=== PATIENT | female | born 1980 | race Caucasian/White ===

== ENCOUNTER → 2016-04-20 | Outpatient (CLI) | payer BC ==
[2016-04-20 11:53] LABS: CH 27.2; CHCM 32.2; HCT 38.5 % (34.0-46.0); HDW 2.73; HGB 12.7 gm/dL (11.4-16.0); MCHC 32.9 g/dL (31.0-37.0); MCV 85.1 fL (80.0-100.0); Mean Platelet Volume 6.9; RBC 4.52 m/uL (3.80-5.40); RDW 13.3 % (11.5-15.5); WBC 11.3 k/uL (3.8-10.6)
== END | disposition home or self-care (01) ==
LOC: LABWHC1 10:28
PROVIDERS: ATTEND Obstetrics & Gynecology
DX: Z34.82 Encounter for supervision of other normal pregnancy, second trimester (principal); Z3A.00 Weeks of gestation of pregnancy not specified
CPT/HCPCS: 36415; 82950; 85027

== ENCOUNTER → 2016-05-25 | Outpatient (CLI) | payer BC ==
--- NOTE | 2016-05-25 11:46 | US ---
EXAMINATION TYPE: US OB anatomy transabd third trimester DATE OF EXAM: 05/25/2016 11:14 AM COMPARISON: NONE HISTORY: LGA, no complaints or prior issues per pt TECHNIQUE: Transabdominal (TA) EXAM MEASUREMENTS: GESTATIONAL AGE / DATING Physician Established: (35 weeks/3 days) EDC: 06/26/2016 Dates by LMP: (35 weeks/3 days) EDC: 06/26/2016 Dates by First Scan: no previous here Dates by Current Scan for: (34 weeks/3 days) EDC: 07/03/2016 SURVEY IUP: Single PLACENTA: Fundal PREVIA: No previa MIKE: 9cm cm Normal CERVICAL LENGTH (transabdominal: norm > 3.0cm): unable to evaluate due to shadowing from head BIOMETRY PRESENTATION: Vertex LIE: Oblique BPD: 8.7 cm 35 weeks / 0 days HC: 31.4 cm 35 weeks / 1 days AC: 29.6 cm 33 weeks / 4 days FL: 6.5 cm 33 weeks / 5 days ESTIMATED WEIGHT IN GRAMS: 2300 grams ESTIMATED WEIGHT IN LBS/OZS: 5 lbs. 1 oz. WEIGHT PERCENTAGE BASED ON ESTABLISHED DATE: 13 % HC/AC: 1.06 FL/AC: 22 HEART RATE: 138 bpm RHYTHM: Normal ANATOMY SEEN (within normal limits): * Lateral Vent (< 1 cm) 0.7 cm Midline Falx Cavus Septi Pellucidi Stomach Situs Nose / Lips Diaphragm Kidneys (bilateral) Bladder Longitudinal Spine Transverse Spine ANATOMY NOT SEEN: due to advanced age and lie * Cisterna Magna (< 1.1 cm) * Nuchal Fold (< 0.6 cm) * Cerebellum (varies with age) Choroid Plexus (bilateral) Four Chamber Heart Outflow tracts: LVOT/RVOT Cord Insert Three Vessel Cord Arms (bilateral) Legs (bilateral) TECHNOLOGIST IMPRESSION: some exam limitations due to advanced age and lie, structures seen ap pear wnl, growth congruent with established dates Single live intrauterine gestation is present. There is no ultrasound evidence for placenta previa. A mniotic fluid index is within normal limits. biometry measurements are within normal limits. De tailed anatomical survey is suboptimal due to advanced age. Visualized structures are within normal l imits during real-time scanning as noted above. Still pictures are unremarkable of the noted normal s tructures. IMPRESSION: As above
== END | disposition home or self-care (01) ==
LOC: RADUSWWP 10:40
PROVIDERS: ATTEND Obstetrics & Gynecology
DX: O36.63X0 Maternal care for excessive fetal growth, third trimester, not applicable or unspecified (principal); Z3A.00 Weeks of gestation of pregnancy not specified
CPT/HCPCS: 76811

== ENCOUNTER 2016-06-21 05:58 | Inpatient (IN) | payer BC ==
[2016-06-21] MEDS ORDERED: OXYTOCIN 10 UNIT/ML 1 ML VIAL IM PRN (06:20)
[2016-06-21] MEDS ORDERED: LIDOCAINE 1% (PF) 10 MG/ML (30 ML SDV) SQ PRN (06:20)
[2016-06-21] MEDS ORDERED: OXYTOCIN 30 UNITS/500 ML NS 30 UNIT in SALINE 1 500ML.BAG IV SCH ×2 (06:20→15:25)
[2016-06-21] MEDS ORDERED: CARBOPROST TROMETHAMINE 250 MCG/ML 1 ML AMP IM PRN (06:20)
[2016-06-21] MEDS ORDERED: METHYLERGONOVINE 0.2 MG/ML 1 ML AMP IM PRN (06:20)
[2016-06-21] MEDS ORDERED: TERBUTALINE 1 MG/ML VIAL SQ PRN (06:20)
--- NOTE | 2016-06-21 06:21 | P.HPOB ---
History of Present Illness H&P Date: 06/21/16 Chief Complaint: Patient's presenting for elective induction of labor. This patient is a pleasant 36-year-old 3 para 2 female estimated date of confinement 06/26/2016 estimated gestational age 39-2/7 weeks who presents to labor and delivery for requested induction of labor. Patient's care has been complicated by hyperthyroidism and she did see maternal medicine for consultation of this. Patient initially was recommended to go on medications per her network liaison however maternal- medicine stated that she should just watch. care otherwise has been uncomplicated. Patient has been followed with growth ultrasounds and nonstress tests. She now presents for delivery electively. Review of Systems Constitutional: Denies chills, Denies fever Ears, nose, mouth and throat: Denies headache, Denies sore throat Cardiovascular: Denies chest pain, Denies shortness of breath Respiratory: Denies cough Gastrointestinal: Reports heartburn, Denies abdominal pain, Denies diarrhea, Denies nausea, Denies vomiting Genitourinary: Reports Menstruation: Reports amenorrhea Musculoskeletal: Denies myalgias Integumentary: Denies pruritus, Denies rash Neurological: Denies numbness, Denies weakness Psychiatric: Denies anxiety, Denies depression Endocrine: Denies fatigue, Denies weight change Past Medical History Past Medical History: Thyroid Disorder History of Any Multi-Drug Resistant Organisms: None Reported Past Surgical History: No Surgical Hx Reported Past Anesthesia/Blood Transfusion Reactions: No Reported Reaction Past Psychological History: No Psychological Hx Reported Smoking Status: Never smoker Past Alcohol Use History: None Reported Past Drug Use History: None Reported Medications and Allergies Home Medications Medication Instructions Recorded Confirmed Type Pnv with Ca,No.72/Iron/FA 1 tab PO DAILY 06/21/16 06/21/16 History [ Plus Tablet] Allergies Allergy/AdvReac Type Severity Reaction Status Date / Time No Known Allergies Allergy Verified 06/21/16 06:19 Exam - OBG Physical Exam Abdomen: bowel sounds normal, no diffuse tenderness, no bruit present, no guarding noted, no hepatomegaly, no splenomegaly, no mass Vulva: both: normal Vagina: normal moisture, no discharge Cervix: Cervix in the office is 2-3 cm. Uterus: enlarged (Fundal height is consistent with a term ) Adnexa: both: normal Results blood work shows that she is O+, rubella immune, RPR nonreactive, hepatitis B negative, Glucola was normal, ultrasounds were normal, abnormal thyroid function tests. Group B strep was negative. Assessment and Plan (1) Third trimester Narrative/Plan: This is a pleasant 36-year-old 3 para 2 female 39-2/7 weeks gestation who presents to labor and delivery for requested induction of labor. Plan is induction of labor and anticipate vaginal delivery. Status: Acute (2) Elective induction of labor planned Status: Acute
[2016-06-21 06:27] VITALS: BMI 25.1
[2016-06-21] MEDS: LACTATED RINGERS 1,000 ML IV SCH ×2 (06:29→10:48)
[2016-06-21 06:48] LABS: Basophils % (A) 0 %; CH 26.6; CHCM 32.2; Eosinophils # (A) 0.3 k/uL (0-0.7); Eosinophils % (A) 3 %; HCT 37.6 % (34.0-46.0); HGB 11.9 gm/dL (11.4-16.0); Hypochromasia Slight; Luc # (Auto) 0.25; Luc % (Auto) 3; Lymphocytes # (A) 1.6 k/uL (1.0-4.8); Lymphocytes % (A) 18 %; MCH 26.2 pg (25.0-35.0); MCHC 31.6 g/dL (31.0-37.0); MCV 82.9 fL (80.0-100.0); Mean Platelet Volume 8.1; Monocytes # (A) 0.5 k/uL (0-1.0); Monocytes % (A) 5 %; Neutrophils # (A) 6.6 k/uL (1.3-7.7); Neutrophils % (A) 72 %; RBC 4.54 m/uL (3.80-5.40); RDW 14.3 % (11.5-15.5); WBC 9.2 k/uL (3.8-10.6); WBC (Perox) 9.46
[2016-06-21] MEDS ORDERED: ZOLPIDEM 5 MG TAB PO PRN (15:25)
[2016-06-21] MEDS ORDERED: BISACODYL 10 MG SUPP RECTAL PRN (15:25)
[2016-06-21] MEDS ORDERED: diphenhydrAMINE 25 MG CAP PO PRN (15:25)
[2016-06-21] MEDS ORDERED: diphenhydrAMINE 50 MG/ML 1 ML VIAL IVP PRN (15:25)
[2016-06-21] MEDS ORDERED: ACETAMINOPHEN TAB 325 MG TAB PO PRN (15:25)
[2016-06-21] MEDS ORDERED: BENZOCAINE/MENTHOL SPRAY 1 GM/SPRAY AEROSOL TOPICAL PRN (15:25)
[2016-06-21] MEDS ORDERED: SIMETHICONE 80 MG CHEWABLE PO PRN (15:25)
[2016-06-21] MEDS ORDERED: WITCH HAZEL 1 EACH MED..PAD TOPICAL PRN (15:25)
[2016-06-21] MEDS ORDERED: Acetaminophen-Codeine 300-30mg TAB PO PRN ×2 (15:25)
[2016-06-21] MEDS ORDERED: HYDROCORTISONE 2.5% RECTAL CREAM 30 GM TUBE RECTAL PRN (15:25)
[2016-06-21] MEDS ORDERED: LANOLIN CREAM 5 GM TUBE TOPICAL PRN (15:25)
--- NOTE | 2016-06-21 16:55 | P.PROBDLV ---
Vaginal Delivery Note - . Vaginal Delivery Note: Normal vaginal delivery viable female Apgars 9 and 9 delivery time is 1512 hrs. Please see dictated H&P for intimate details of this patient's admission. In brief summary this is a pleasant 36-year-old 3 para 2 female 39-2/7 weeks gestation admitted for elective induction of labor. Patient is admitted she's to 3 cm dilated and has artificial rupture membranes for small amount of bloody fluid. Later on the patient does have a gush of clear fluid. heart tones are reassuring in labor is induced with Pitocin per protocol. Patient progresses and gets an epidural for pain control. Patient's labor progresses quickly she gets to complete pushes the head to the perineum. Posterior perineum was supported and we have controlled delivery of the infant' s head over the intact perineum. Mouth and nares are bulb suctioned. There is no evidence of a nuchal cord. With gentle downward traction we have delivery the anterior posterior shoulder and rest this infant's body. This is a vigorous viable female infant Apgars are 9 and 9 delivery time is 1512 hrs. After delivery of the the umbilical cord is doubly clamped and cut and appears to be trivascular. The placenta spontaneously delivered intact. Estimated blood loss is 100 mL. There is a superficial left periurethral lacerations otherwise no other lacerations and no repair is done. All counts are correct 3. There are no complications. and mother stable delivery room.
[2016-06-21] MEDS: SENNOSIDES-DOCUSATE SODIUM 1 EACH TAB PO SCH ×2 (19:20→20:24)
[2016-06-21] MEDS: IBUPROFEN 600 MG TAB PO PRN (21:11)
[2016-06-22 04:07] VITALS: RESP 18
--- NOTE | 2016-06-22 06:13 | P.PNOBGVD ---
Subjective - Subjective Patient reports: Reports appetite normal, Reports voiding normally, Reports pain well controlled, Reports ambulating normally : doing well Objective - Latest Vital Signs Latest vital signs: Vital Signs Temp Pulse Resp BP Pulse Ox 06/22/16 04:00 97.9 F 76 18 104/73 97 06/21/16 23:53 98.4 F 76 16 117/76 96 06/21/16 20:00 98.3 F 81 17 101/68 96 06/21/16 17:50 82 16 128/78 06/21/16 17:08 72 16 114/64 06/21/16 16:30 83 16 128/68 06/21/16 16:15 89 16 140/75 06/21/16 16:00 98.1 F 88 16 122/66 06/21/16 15:45 82 16 122/72 06/21/16 15:30 84 16 124/76 06/21/16 06:21 96.9 F L 76 19 127/86 99 Intake and Output 06/21/16 06/21/16 06/22/16 14:59 22:59 06:59 Output Total 700 100 Balance -700 -100 Output: Urine 700 Straight 700 Estimated Blood Loss 100 Other: Voiding Method Toilet # Voids 1 2 - Exam Lungs: bilateral: normal Chest: Normal S1, Normal S2 Extremities: Present: normal Abdomen: Present: normal appearance, soft Uterus: Present: normal, firm Assessment and Plan (1) Third trimester Narrative/Plan: day #1. Patient is resting without complaints and wishes to go home. Vital signs are stable she's afebrile. Uterus is firm nontender she's having normal lochia. My impression is a normal course. Plan is to continue routine care discharge home today Current Visit: Yes Status: Acute Code(s): Z33.1 - STATE, INCIDENTAL SNOMED Code(s): 50344070 (2) Elective induction of labor planned Current Visit: Yes Status: Acute Code(s): VIM8368 - SNOMED Code(s): 353116391
--- NOTE | 2016-06-22 06:16 | P.DS ---
Providers Date of admission: 06/21/16 05:58 Expected date of discharge: 06/22/16 Attending physician: Khari Hernández Primary care physician: Stated None - Discharge Diagnosis(es) (1) Third trimester Current Visit: Yes Status: Acute (2) Elective induction of labor planned Current Visit: Yes Status: Acute Hospital Course: Please see dictated H&P for intimate details of this patient's admission. Brief summary this is a pleasant 36-year-old 3 para 2 female 39-2/7 weeks gestation admitted to labor and delivery for requested induction of labor. Patient is admitted has uncomplicated induction of labor quickly goes on have a vaginal delivery viable female infant. Please see dictated delivery note. patient does well felt stable for discharge home on day #1. Procedures: Induction of labor normal vaginal delivery. Patient Condition at Discharge: Good Plan - Discharge Summary New Discharge Prescriptions: Acetaminophen-Codeine 300-30mg [Tylenol w/codeine #3] 1 - 2 each PO Q4HR PRN # 30 tab PRN Reason: Mild Pain exceeding Tylenol Ibuprofen [Motrin] 600 mg PO Q6HR PRN #40 tab PRN Reason: Mild Pain Or Fever >= 100.5 Discharge Medication List Pnv with Ca,No.72/Iron/FA [ Plus Tablet] 1 tab PO DAILY 06/21/16 [ History] Acetaminophen-Codeine 300-30mg [Tylenol w/codeine #3] 1 - 2 each PO Q4HR PRN # 30 tab 06/22/16 [Rx] Ibuprofen [Motrin] 600 mg PO Q6HR PRN #40 tab 06/22/16 [Rx] Follow up Appointment(s)/Referral(s): Khari Hernández MD [STAFF PHYSICIAN] - 08/03/16 9:30 am Patient Instructions/Handouts: Vaginal Delivery (DC) Activity/Diet/Wound Care/Special Instructions: No intercourse or anything per vagina for 6 weeks. Please call if any fever, chills, excessive vaginal bleeding, and/or abdominal pain. Discharge Disposition: HOME SELF-CARE
[2016-06-22] MEDS: IBUPROFEN 600 MG TAB PO PRN (07:48)
[2016-06-22 08:14] VITALS: BP 105/67; PULSE 84; TEMP 98.2
[2016-06-22] MEDS: SENNOSIDES-DOCUSATE SODIUM 1 EACH TAB PO SCH (16:48)
== END 2016-06-22 16:15 | disposition home or self-care (01) | DRG 775 ==
LOC: 4FBP 05:58
PROVIDERS: ADMIT Obstetrics & Gynecology; ATTEND Obstetrics & Gynecology
PROC: 3E0S3CZ (ICD-10-PCS; principal; 2016-06-21)
PROC: 10907ZC Drainage of Amniotic Fluid, Therapeutic from Products of Conception, Via Natural or Artificial Opening (ICD-10-PCS; principal; 2016-06-21)
PROC: 10E0XZZ Delivery of Products of Conception, External Approach (ICD-10-PCS; principal; 2016-06-21)
PROC: 00HU33Z Insertion of Infusion Device into Spinal Canal, Percutaneous Approach (ICD-10-PCS; principal; 2016-06-21)
DX: O99.284 Endocrine, nutritional and metabolic diseases complicating childbirth (principal); E05.90 Thyrotoxicosis, unspecified without thyrotoxic crisis or storm; Z37.0 Single live birth; Z3A.39 39 weeks gestation of pregnancy
CPT/HCPCS: 85025; 88307

== ENCOUNTER 2021-05-23 12:19 | Emergency (ER) | payer BC, OTHER ==
[2021-05-23 12:26] VITALS: RESP 16; TEMP 98.5
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
[2021-05-23 13:55] VITALS: BP 148/99; PULSE 64
== END 2021-05-23 13:55 | disposition home or self-care (01) ==
LOC: EC 12:19
DX: S09.90XA Unspecified injury of head, initial encounter (principal); V89.2XXA Person injured in unspecified motor-vehicle accident, traffic, initial encounter; Y92.410 Unspecified street and highway as the place of occurrence of the external cause
CPT/HCPCS: 70450; 72125; 99284